=== PATIENT | female | born 1955 | race Caucasian/White ===

== ENCOUNTER → 2024-12-20 | Outpatient (CLI) | payer MEDICARE, MEDICAID, SELFPAY ==
--- NOTE | 2024-12-20 17:00 | XR_ITS ---
Examination: CT right upper extremity, without contrast. 2-D sagittal reconstructions. 2-D coronal reconstructions. 3-D reconstructions. Date and time of exam:December 20, 2024 1727 hours INDICATIONS: Right shoulder fracture and replacement surgery 7 years ago with upper arm pain CTDI: vol (mGy):22.3 DLP: (mGycm):868 Technique: Multiple 1.25 mm axial sections of the right upper extremity without intravenous contrast have been obtained. 2-D sagittal and coronal reconstructions have been obtained. 3-D reconstructions have been obtained. Low dose protocols were performed. One or more of the following dose reduction techniques were used; automated exposure control, adjustment of the mA and/or KV according to patient size, use of iterative reconstruction technique. Findings: Reverse right shoulder arthroplasty Large area of bone destruction around the prosthetic stem of the shoulder arthroplasty, proximal shaft of the humerus, coronal image 49, axial images 76 through 89 This appearance may be secondary to extensive osteomyelitis or neoplastic lesion destroying bone with pathologic fracture. The appearance should be clinically correlated Adjacent ribs appear intact Repeat study with intravenous contrast may be helpful IMPRESSION: Large area of bone destruction around the proximal prosthetic stem of the shoulder arthroplasty, differential would include extensive bone destruction secondary to osteomyelitis or bone neoplasm, clinical correlation advised, consider follow-up CT humerus post intravenous contrast
== END | disposition home or self-care (01) ==
PROVIDERS: Referring Provider Orthopaedic Surgery Orthopaedic Trauma; Visit Provider Orthopaedic Surgery Orthopaedic Trauma
DX: M89.8X1 Other specified disorders of bone, shoulder (principal); Z47.1 Aftercare following joint replacement surgery; Z96.611 Presence of right artificial shoulder joint
CPT/HCPCS: 73200

== ENCOUNTER 2025-04-26 16:56 | Emergency (ER) | payer MEDICARE, MEDICAID, SELFPAY ==
[2025-04-26 17:12] VITALS: BP 142/89; PULSE 118; RESP 16; TEMP 36.8; O2SAT 94; BMI 23.6
--- NOTE | 2025-04-26 17:19 | XR_ITS ---
Examination: CT brain head without contrast. 2-D sagittal coronal reconstructions Date and time of exam: April 26, 2025, 1806 hours INDICATIONS: Altered mental status today CTDI: vol (mGy): 49 DLP: (mGycm): 967 Technique: Multiple CT axial sections of the brain have been obtained, 5 mm slice thickness. Contrast has not been administered. 2-D sagittal, coronal reconstructions have been obtained Low dose protocols were performed. One or more of the following dose reduction techniques were used; automated exposure control, adjustment of the mA and/or KV according to patient size, use of iterative reconstruction technique. Findings: No significant ventricular enlargement. Intra-axial or extra-axial hemorrhage density is not seen. No mass effect or midline shift Basal cisterns are not remarkable. Fourth ventricle is midline. Cranial vault intact. Impression: Negative for acute hemorrhage, mass effect or midline shift Advise clinical correlation and follow-up accordingly
--- NOTE | 2025-04-26 17:20 | XR_ITS ---
EXAMINATION: PA lateral chest 2 views TECHNIQUE: Upright PA lateral chest 2 views Date and time: April 26, 2025, 1727 hours, comparison January 21, 2021 INDICATIONS: Chest pain 1 week. FINDINGS: Mild hyperexpansion No significant cardiac enlargement Accentuation of bronchovascular markings Reverse right shoulder arthroplasty IMPRESSION: COPD Basilar bronchitis pattern
--- NOTE | 2025-04-26 17:20 | EKG_ITS ---
[facility] Test Date: 2025-04-26 Pat Name: ENDY EPPERSON Department: Room: - Gender: Female Composition Tile Layer: : 1955 Requested By: Sohail Harris Order Number: [id number] Reading MD: Sohail Harris Measurements Intervals Wendel Rate: 108 P: 34 OH: 148 QRS: -10 QRSD: 75 T: 30 QT: 358 QTc: 481 Interpretive Statements SINUS TACHYCARDIA POSSIBLE LEFT ATRIAL ENLARGEMENT [-0.1mV P-WAVE IN V1/V2] ABNORMAL RHYTHM ECG Compared to ECG 12/28/2020 14:25:55 Sinus rhythm no longer present /store/S0/[id number]/[id number].pdf
--- NOTE | 2025-04-26 17:20 | PD.EDRME ---
Rapid Medical Screening Exam RME Arrival date/time: 04/26/25 16:56 70-year-old female with a history of alcohol abuse, seizures presents to the emergency room with a chief complaint of altered mental status x 3 days I have greeted and performed a focused initial assessment of this patient. A comprehensive ED assessment and evaluation of the patient, analysis of all test results, and completion of the medical decision making process will be conducted by additional ED providers. Chief Complaint: Altered Mental Status Vital signs: Vital Signs Temperature 98.3 F 04/26/25 17:12 Pulse Rate 118 H 04/26/25 17:12 Respiratory Rate 16 04/26/25 17:12 Blood Pressure 142/89 H 04/26/25 17:12 Pulse Oximetry (%) 94 L 04/26/25 17:12 Oxygen Delivery Method Room Air 04/26/25 17:12 Vital signs reviewed by provider: Yes
[2025-04-26 18:32] LABS: Collection Type, Urine Clean Catch
[2025-04-26 18:39] LABS: Bacteria,Urine 4+; Bilirubin,Urine Negative (Negative); Blood,Urine Negative (Negative); Color,Urine Yellow (Lt Yel-Yel); Culture Indicated,Urine Contaminated; Glucose, Urine Negative (Negative); Ketones,Urine Negative (Negative); Leukocyte Esterase,Urine Positive (Negative); Nitrite,Urine Positive (Negative); PH,Urine 6.0 (5.0-7.0); Protein,Urine 1+ (Neg - Trace); RBC,Urine 3 /hpf (0-3); Specific Gravity,Urine 1.036 (1.001-1.035); Squamous Epithelial Cell,Urine 99 /hpf (0-5); Urobilinogen,Urine 2.0 mg/dL (0.0-1.0); WBC,Urine 22 /hpf (0-5)
[2025-04-26 18:41] LABS: Clarity,Urine Turbid (Clear/Hazy)
[2025-04-26 18:47] LABS: INR 1.2 (0.9-1.3); Partial Thromboplastin Time 27.9 Seconds (22.0-36.0); Prothrombin Time 13.0 Seconds (9.0-12.2)
[2025-04-26 18:49] LABS: Ammonia 22 uMol/L (11-32); B-Type Natriuretic Peptide 173 pg/mL (0-100)
[2025-04-26 18:50] LABS: Alanine Aminotransferase 10 U/L (10-49); Albumin, Serum 4.0 gm/dL (3.4-4.8); Albumin/Globulin Ratio 1.3 (1.2-2.2); Alkaline Phosphatase 83 U/L (46-116); Anion Gap 13 (7-16); Aspartate Amino Transferase 24 U/L (0-34); BUN/Creatinine Ratio 16 Ratio (12-20); Bilirubin,Total 1.4 mg/dL (0.3-1.2); Blood Urea Nitrogen 13 mg/dL (9-23); Calcium 9.2 mg/dL (8.3-10.6); Calcium (Corrected) 9.2 mg/dL (8.5-10.1); Carbon Dioxide 22.2 mMol/L (20.0-31.0); Chloride 106 mMol/L (98-107); Creatinine (Component) 0.8 mg/dL (0.6-1.3); Estimated Creatinine Clearance 50.1 mL/min (>60); Globulin 3.0 gm/dL (2.3-3.5); Glucose 105 mg/dL (74-106); Magnesium 1.9 mg/dL (1.6-2.6); Osmolality,Calculated 281 (275-295); Potassium 3.4 mMol/L (3.4-5.1); Sodium 141 mMol/L (136-145); Total Protein 7.0 gm/dL (5.7-8.2); Troponin I < 0.020 ng/mL (0.0-0.045); eGFR > 60 See Note
[2025-04-26 18:57] LABS: Basophils # (Auto) 0.1 Thou/mm3 (0.0-0.2); Basophils % (Auto) 1 % (0-2.5); Eosinophils # (Auto) 0.3 Thou/mm3 (0.0-0.5); Eosinophils % (Auto) 4 % (0-10); Hematocrit 42.0 % (36.0-46.0); Hemoglobin 14.9 g/dL (12.0-16.0); Immature Granulocytes Auto 0.02 Thou/mm3 (0.00-0.00); Lymphocytes # (Auto) 2.2 Thou/mm3 (1.0-4.8); Lymphocytes % (Auto) 26 % (10-50); Mean Corpuscular HGB Conc 35.5 g/dl (31.0-37.0); Mean Corpuscular Hemoglobin 34.3 pg (25.0-35.0); Mean Corpuscular Volume 97 fL (80-100); Monocytes # (Auto) 1.1 Thou/mm3 (0.0-0.8); Monocytes % (Auto) 14 % (0-12); Neutrophils # (Auto) 4.6 Thou/mm3 (1.8-7.7); Neutrophils % (Auto) 55 % (37-80); Nucleated Red Blood Cell # 0.00 Thou/mm3 (0.00-0.00); Nucleated Red Blood Cell % 0 /100 WBC (0); Platelet Count 197 Thou/mm3 (140-440); RDW Standard Deviation 52.3 fL (36.4-46.3); Red Blood Count 4.34 Miln/mm3 (4.00-5.20); White Blood Count 8.3 Thou/mm3 (3.6-11.0)
[2025-04-26 18:57] LABS: Amphetamine/Methamp Scrn,U Negative (Negative); Barbiturate Screen,Urine Negative (Negative); Benzodiazepines Screen,Urine Negative (Negative); Benzoylecgonine Screen, Ur Negative (Negative); Fentanyl Screen,Urine Negative (Negative); Opiate Screen,Urine Negative (Negative); THC Screen,Urine Positive (Negative)
--- NOTE | 2025-04-26 20:42 | PD.EDAMS ---
Altered Mental Status RME/HPI General Chief Complaint: Altered Mental Status Stated Complaint: MENTALLY ALTERED Time Seen by Provider: 04/26/25 20:16 Arrival date/time: 04/26/25 16:56 RME / HPI RME / HPI narrative: 70-year-old female with a history of alcohol abuse, seizures presents to the emergency room with a chief complaint of altered mental status x 3 days. Severity of symptoms mild. Yesterday was worse but today patient is almost back to baseline. Family is worried about not taking the gabapentin and that is why she become slightly altered. She had a history of dementia also. No fever no other complaints noted no cough. No diarrhea no constipation no dysuria. Related Data Home Medications ?Medication ?Instructions ?Recorded ?Confirmed gabapentin 300 mg capsule 300 mg PO TID 05/23/23 05/23/23 Previous Rx's ?Medication ?Instructions ?Recorded levofloxacin 500 mg tablet 500 mg PO Q24H 5 days #5 tabs 04/26/25 Allergies Allergy/AdvReac Type Severity Reaction Status Date / Time cephalexin Allergy Severe Hives Verified 04/26/25 17:00 clindamycin Allergy Severe Hives Verified 04/26/25 17:00 Penicillins Allergy Severe HIVES, Verified 04/26/25 17:00 ITCHING mold Allergy Unknown Verified 04/26/25 17:00 pollen extracts Allergy Unknown Verified 04/26/25 17:00 prednisone Allergy Unknown Verified 04/26/25 17:00 hydrocodone AdvReac Severe MOOD Verified 04/26/25 17:00 CHANGE TO ANGRY, DOES NOT WORK oxycodone AdvReac Severe MOOD Verified 04/26/25 17:00 CHANGE TO ANGRY, DOES NOT WORK tramadol AdvReac Unknown AFFECTS Verified 04/26/25 17:00 MOOD TO ANGRY Review of Systems Review of Systems Narrative Review of Systems: Review of system reviewed and within normal limits except mentioned in HPI ED Exam Narrative Physical exam: VITAL SIGNS: Reviewed. GENERAL APPEARANCE: Alert and interactive, x 3, follows commands, no acute distress, answers question appropriately HEAD AND FACE: Non-traumatic. ENT: PERRL, pink conjunctivitis, eyelid no trauma, Mucous membrane moist. NECK: Supple, nontender, no nuchal rigidity. CHEST: No tenderness, no crepitus, no paradoxical movement, no retractions. LUNGS: Clear, well ventilated, symmetric, no rales, no wheezing, no ronchi, no stridor, good breath sounds bilaterally. HEART: Regular rate, regular rhythm, no murmur, no gallops. ABDOMEN: Soft, positive bowel sounds, nondistended, no guarding, nontender, no rebound, no masses, RECTAL: Deferred. GENITAL: Deferred. NEUROLOGICAL: Gross motor function intact sensory function intact, Appropriate for age. MUSCULOSKELETAL: low back nontender, full range of motion. EXTREMITIES: Nontender, full range of motion. SKIN: Color pink, dry, no rash, no lacerations, no abrasions, no contusions. LYMPHATICS: Deferred. Course Quality Measures none Orders Category Date Time Status EKG (ED ONLY) *Do not use* NOW Care 04/26/25 17:[address] head/brain wo con Stat Exams 04/26/25 17:19 Completed EKG (ED Only) Stat Exams 04/26/25 17:20 Draft XR chest 2V Stat Exams 04/26/25 17:20 Completed Ammonia Stat Lab 04/26/25 18:24 Completed B-Type Natriuretic Peptide Stat Lab 04/26/25 18:24 Completed CBC Stat Lab 04/26/25 18:24 Completed Comprehensive Metabolic Panel Stat Lab 04/26/25 18:24 Completed Drug Screen,Urine Stat Lab 04/26/25 18:20 Completed Magnesium Stat Lab 04/26/25 18:24 Completed Partial Thromboplastin Time Stat Lab 04/26/25 18:24 Completed Prothrombin Time with INR Stat Lab 04/26/25 18:24 Completed Troponin I Stat Lab 04/26/25 18:24 Completed Urinalysis, C/S if Indicated Stat Lab 04/26/25 18:20 Completed Levofloxacin [Levaquin] Med 04/26/25 20:41 Once 500 mg PO X1 ONE Vital Signs Vital signs: Vital Signs Temperature 98.3 F 04/26/25 17:12 Pulse Rate 118 H 04/26/25 17:12 Respiratory Rate 16 04/26/25 17:12 Blood Pressure 142/89 H 04/26/25 17:12 Pulse Oximetry (%) 94 L 04/26/25 17:12 Oxygen Delivery Method Room Air 04/26/25 17:12 Altered Mental Status MDM Narrative MDM Narrative:: 70-year-old female with a history of alcohol abuse, seizures presents to the emergency room with a chief complaint of altered mental status x 3 days. Severity of symptoms mild. Yesterday was worse but today patient is almost back to baseline. Family is worried about not taking the gabapentin and that is why she become slightly altered. She had a history of dementia also. No fever no other complaints noted no cough. No diarrhea no constipation no dysuria. Her workup today CAME back benign except for UTI. Which also questionable genital contamination. CT scan of the head came back unremarkable. I personally reviewed and interpreted the x-ray of this patient. There is no acute abnormalities found, no infiltrates no pneumothorax no hemothorax normal chest x-ray. Review of other structures was without significant abnormal findings also. I additionally reviewed the radiologist report and agree with the interpretation. Patient is allergic to penicillin and cephalosporin. Also allergic to clindamycin. Patient was given Levaquin p.o. For UTI. Stable for discharge home. Patient data External records reviewed:: None Clinical information provided by:: patient Social determinants that could affect healthcare access:: none Patient has the following chronic illnesses:: Dementia How is presenting disease/condition affected by chronic disease/condition?: exacerbated by Evaluation data The following diagnostics were reviewed and interpreted by me:: lab results, radiology exam(s) and EKG tracing(s) Lab and/or radiology exams considered but not ordered:: None Interpretation Summary: EKG as interpreted by me shows sinus tachycardia, ventricular rate of 108 bpm, no ST segment ovation depression noted. Medications / Prescriptions Medications or Prescriptions considered but not ordered:: None Medication administrations:: Medication Administration History Levofloxacin (Levofloxacin 250 Mg Tablet) 500 mg PO X1 ONE Stop: 04/26/25 20:42 Levaquin Consultations Consultation(s) initiated? (list below): No Diagnosis Differential diagnosis altered mental status: altered mental status, delirium and dementia Most likely diagnosis given after review of the tests above:: UTI, history of dementia Admission Indicated Admission indicated?: not indicated Admission Request Was there a request for admission?: No Disposition Plan Disposition Plan: Discharge Discharge Attestation Discharge Attestation: The patient and all family members were given an opportunity to ask questions and understood the discharge instructions. Discharge instructions specifically effects, indications for sooner follow up or return to the emergency department, and the expected course of current diagnosis. Patient condition: Stable Discharge Plan Plan Patient Disposition: HOME (Self Care) Discharge Disposition comment: Stable Prescriptions/Referrals Prescriptions/Med Rec: New levofloxacin 500 mg tablet 500 mg PO Q24H 5 Days Qty: 5 0RF No Action gabapentin 300 mg capsule 300 mg PO TID Referrals: Devon Perales MD [Primary Care Provider, Family Practice] - In 1 week Problem List Clinical Impression: UTI (urinary tract infection), Confusion Patient/Caregiver Discharge Instructions Discharge Activity: activity as tolerated Education Materials: ED Confusion Additional Instructions: Thank you for the opportunity for serving you today. You are stable for discharged . You are advised to: Follow-up with your PCP in 1 to 2 days Return to ED for worsening of symptoms Increase oral fluids Take medication as prescribed Print Language: Bhutanese Stand Alone Forms: Estephania Award Info., Patient Portal Info Letter PA/PROJECT LEAD Supervising Physician PA/PROJECT LEAD Supervising Physician: MD Billy
[2025-04-26] MEDS: LEVOFLOXACIN 250 MG TABLET 500 MG PO (20:48)
[2025-04-26 20:52] VITALS: BP 161/95; PULSE 84; RESP 16; TEMP 36.9; O2SAT 98
== END 2025-04-26 20:56 | disposition home or self-care (01) ==
PROVIDERS: Nurse Practitioner Family; Emergency Provider Family Medicine; PCP Family Medicine
DX: N39.0 Urinary tract infection, site not specified (principal); F03.90 Unspecified dementia, unspecified severity, without behavioral disturbance, psychotic disturbance, mood disturbance, and anxiety
CPT/HCPCS: 36415; 70450; 71046; 80053; 80307; 81001; 82140; 83735; 83880; 84484; 85025; 85610; 85730; 93005; 99283; A9270